=== PATIENT | female | born 1960 | race Caucasian/White ===

== ENCOUNTER 2016-03-31 12:42 | Inpatient (IN) | payer OTHER ==
[~2016-03-31] VITALS: Ht 165.1 cm; Wt 50.6 kg
[~2016-03-31 12:42] MED LIST: DEPA500T3 PO; RISP1 PO; TRAZ50TA78 PO
[2016-03-31 13:07] VITALS: BP 113/67; PULSE 60; RESP 18; TEMP 98; O2SAT 96
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
[2016-03-31 13:31] LABS: AUTOMATED NEUTROPHIL # 8.4 TH/MM3 (1.8-7.7); BASOPHIL # 0.1 TH/MM3 (0-0.2); BASOPHIL % 0.5 % (0.0-2.0); EOSINOPHIL % 0.2 % (0.0-4.0); HEMATOCRIT 41.1 % (35.0-46.0); HEMO FLAGS DIFF FINAL; LYMPH % 16.2 % (9.0-44.0); LYMPHOCYTE # 1.8 TH/MM3 (1.0-4.8); MEAN CELL VOLUME 85.1 FL (80.0-100.0); MEAN CORPUSCULAR HEMOGLOBIN 28.9 PG (27.0-34.0); MONO % 6.6 % (0.0-8.0); NEUT % 76.5 % (16.0-70.0); PLATELET COUNT 236 TH/MM3 (150-450); RED BLOOD COUNT 4.83 MIL/MM3 (4.00-5.30); RED CELL DISTRIBUTION WIDTH 13.8 % (11.6-17.2); WHITE BLOOD COUNT 11.1 TH/MM3 (4.0-11.0)
--- NOTE | 2016-03-31 13:32 | PD ---
Physical Exam Date Seen by Provider: Mar 31, 2016 Narrative I, Dr. Avila, have reviewed the advance practice practitioner's documentation and am in agreement, met with the patient face to face, made the diagnosis, and the medical decision making was done by me. *My assessment and Findings: The patient is here under Johnson Act. She is a little bit agitated. Data Data Last Documented VS Vital Signs Date Time Temp Pulse Resp B/P Pulse Ox O2 Delivery O2 Flow Rate FiO2 03/31/16 13:12 80 18 03/31/16 13:07 98.0 113/67 96 Orders Complete Blood Count With Diff (03/31/16 13:15) Comprehensive Metabolic Panel (03/31/16 13:15) Drug Screen, Random Urine (03/31/16 13:15) Alcohol (Ethanol) (03/31/16 13:15) Psych Screen (03/31/16 13:15) MDM Supervised Visit with RYAN: Yes Scripts Unable to Obtain Active Prescriptions or Reported Meds Isela Avila MD Mar 31, 2016 13:32
[2016-03-31 13:47] LABS: ALT (GPT) 19 U/L (10-53); ANION GAP 12 MEQ/L (5-15); AST (GOT) 11 U/L (15-37); BICARBONATE 22.3 MEQ/L (21.0-32.0); BLOOD UREA NITROGEN 8 MG/DL (7-18); CHLORIDE 106 MEQ/L (98-107); GLOMERULAR FILTRATION RATE 128 ML/MIN (>89); POTASSIUM 3.9 MEQ/L (3.5-5.1); SODIUM (NA) 140 MEQ/L (136-145)
[2016-03-31 13:48] LABS: AMPHETAMINE, URINE NEG (NEG); BARBITURATES, URINE NEG (NEG); COCAINE, URINE NEG (NEG)
[2016-03-31 13:49] LABS: ALKALINE PHOSPHATASE 94 U/L (45-117); TOTAL BILIRUBIN ADULT 0.3 MG/DL (0.2-1.0)
[2016-03-31 15:51] VITALS: BP 100/55; PULSE 76; RESP 18; TEMP 98.7; O2SAT 96
[2016-03-31] MEDS ORDERED: RISP1 PO (17:22)
[2016-03-31] MEDS ORDERED: LORazepam 1 MG TAB PO PRN (17:30)
[2016-03-31] MEDS ORDERED: traZODone HCL 50 MG TAB PO PRN (17:30)
[2016-03-31] MEDS ORDERED: diphenhydrAMINE HCL 50 MG/ML VIAL IM PRN (17:30)
[2016-03-31] MEDS ORDERED: ALUMINUM/MAGNESIUM/SIMETH 30 ML CUP PO PRN (17:30)
[2016-03-31] MEDS ORDERED: LORazepam 2 MG/ML VIAL IM PRN (17:30)
[2016-03-31] MEDS ORDERED: MAGNESIUM HYDROXIDE SUSP 30 ML CUP PO PRN (17:30)
[2016-03-31] MEDS ORDERED: ACETAMINOPHEN 325 MG TAB PO PRN (17:30)
[2016-03-31] MEDS ORDERED: diphenhydrAMINE HCL 50 MG CAP PO PRN (18:00)
[2016-03-31 18:14] VITALS: BP 123/75; PULSE 80; RESP 16; TEMP 98; O2SAT 95
[2016-03-31] MEDS ORDERED: risperiDONE 1 MG TAB PO SCH (21:00)
[2016-04-01 06:09] VITALS: BP 117/68; PULSE 72; RESP 18; TEMP 97.2; O2SAT 97
[2016-04-01 07:54] LABS: ANION GAP 9 MEQ/L (5-15); BICARBONATE 25.3 MEQ/L (21.0-32.0); BLOOD UREA NITROGEN 18 MG/DL (7-18); CHLORIDE 109 MEQ/L (98-107); GLOMERULAR FILTRATION RATE 90 ML/MIN (>89); POTASSIUM 3.8 MEQ/L (3.5-5.1); SODIUM (NA) 143 MEQ/L (136-145)
[2016-04-01 07:56] LABS: HDL CHOLESTEROL 70.5 MG/DL (40.0-60.0); LDL CHOLESTEROL 68 MG/DL (0-99)
[2016-04-01] MEDS: NICOTINE 21 MG/24 HR PATCH T-DERMAL SCH (08:39)
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
[2016-04-01] MEDS ORDERED: BENZTROPINE MESYLATE 1 MG TAB PO PRN (12:00)
[2016-04-01] MEDS ORDERED: hydrOXYzine HCL 50 MG TAB PO PRN (12:00)
[2016-04-01] MEDS ORDERED: diphenhydrAMINE HCL 50 MG CAP PO PRN (12:00)
[2016-04-01] MEDS ORDERED: BENZTROPINE MESYLATE 2 MG/2 ML VIAL IM PRN (12:00)
[2016-04-01] MEDS: DIVALPROEX DR 500 MG TABEC PO SCH ×2 (12:00→20:52)
[2016-04-01] MEDS ORDERED: LORazepam 2 MG/ML VIAL IM PRN ×4 (12:15)
[2016-04-01] MEDS ORDERED: LORazepam 1 MG TAB PO PRN (12:15)
[2016-04-01] MEDS ORDERED: FLUMAZENIL 1 MG/10 ML VIAL IV PUSH PRN (12:15)
[2016-04-01] MEDS ORDERED: LORazepam 2 MG TAB PO PRN (12:15)
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
[2016-04-01 18:06] LABS: HEMOGLOBIN A1a 1.3 %; HEMOGLOBIN A1b 0.8 %; HEMOGLOBIN Ao 84.9 %; HEMOGLOBIN F 1.1 %; HEMOGLOBIN P3 3.8 %
[2016-04-01 18:43] VITALS: BP 117/69; PULSE 72; RESP 18; TEMP 98; O2SAT 99
[2016-04-01] MEDS: risperiDONE 1 MG TAB PO SCH (20:52)
[2016-04-01] MEDS: REMOVE OLD NICOTINE PATCH T-DERMAL SCH (21:00)
[2016-04-02 06:00] VITALS: BP 100/68; PULSE 66; RESP 18; TEMP 98.4; O2SAT 97
[2016-04-02] MEDS: DIVALPROEX DR 500 MG TABEC PO SCH ×2 (09:00→21:05)
[2016-04-02] MEDS: NICOTINE 21 MG/24 HR PATCH T-DERMAL SCH (09:00)
[2016-04-02] MEDS: risperiDONE 1 MG TAB PO SCH ×2 (09:08→21:05)
[2016-04-02] MEDS: THIAMINE HCL 100 MG TAB PO SCH (09:08)
[2016-04-02] MEDS: FOLIC ACID 1 MG TAB PO SCH (09:08)
[2016-04-02] MEDS ORDERED: NICOTINE 21 MG/24 HR PATCH TD SCH (13:50)
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
[2016-04-02 18:00] VITALS: BP 99/64; PULSE 74; RESP 17; TEMP 98.2; O2SAT 98
[2016-04-02] MEDS: REMOVE OLD NICOTINE PATCH T-DERMAL SCH (21:00)
[2016-04-03 05:45] VITALS: BP 98/65; PULSE 64; RESP 16; TEMP 98.4; O2SAT 98
[2016-04-03] MEDS: NICOTINE 21 MG/24 HR PATCH T-DERMAL SCH (09:00)
[2016-04-03] MEDS: FOLIC ACID 1 MG TAB PO SCH (09:02)
[2016-04-03] MEDS: THIAMINE HCL 100 MG TAB PO SCH (09:02)
[2016-04-03] MEDS: DIVALPROEX DR 500 MG TABEC PO SCH ×2 (09:02→21:37)
[2016-04-03] MEDS: risperiDONE 1 MG TAB PO SCH ×2 (09:02→21:38)
--- NOTE | 2016-04-03 11:46 | HHI.PYPN ---
Subjective Remarks Patient seen and examined with counselor. Chart reviewed. Case discussed with nursing staff. On my examination today, the patient is less hyperverbal and less pressured. Her thought process is more organized, although her associations to remain a little loose. She says that she is sleeping better with the benefit of psychotropic medications. She denies side effects from medications. No SI or HI voiced. Review of Systems ROS Limitations: Poor Historian Other no reported physical complaints Objective Alert: Yes [place]: Person, Place, Date Mood: Other (calmer) Affect: Other (significantly less manic today) Memory Intact: Comment (seems fair on clinical exam) Hallucinations: Other (no AVH) Delusions: No Delusion Type: Other (no delusional material) Suicidal: Ideation (no SI) Homicidal: Ideation (no HI) Insight/Judgement Improving Remarks No abnormal motor movements noted Labs Labs reviewed. No new labs. Vitals/IOs Vital Signs Date Time Temp Pulse Resp B/P Pulse Ox O2 Delivery O2 Flow Rate FiO2 04/03/16 05:45 98.4 64 16 98/65 98 03/31/16 15:51 Room Air Assessment & Plan Problem List: (1) Bipolar disorder ICD Code: F31.9 (2) Polysubstance abuse ICD Code: F19.10 Assessment & Plan Patient seems to be having a response to psychotropic medications as they are currently dosed. I will continue psychotropics as ordered and plan to check a Depakote and ammonia level tomorrow morning. Patient has required no Ativan per withdrawal protocol and has no signs of withdrawal now. Continue other care as ordered. Patient may sign voluntary. Justification for Cont. Inpt. Risk for decompensation pending psychiatric stabilization Discharge Planning Monitor overnight. Request HC Surrog/Guard Advoc?: Yes Problem Qualifiers (1) Bipolar disorder: Qualified Code: F31.12 - Bipolar affective disorder, currently manic, moderate Gaston Toscano MD Apr 03, 2016 11:46
[2016-04-03 19:24] VITALS: BP 102/57; PULSE 72; RESP 17; TEMP 99.2; O2SAT 98
[2016-04-03] MEDS: REMOVE OLD NICOTINE PATCH T-DERMAL SCH (21:00)
[2016-04-04 06:16] VITALS: BP 114/72; PULSE 76; RESP 16; TEMP 97.7; O2SAT 97
[2016-04-04] MEDS: DIVALPROEX DR 500 MG TABEC PO SCH (08:34)
[2016-04-04] MEDS: risperiDONE 1 MG TAB PO SCH (08:34)
[2016-04-04] MEDS: FOLIC ACID 1 MG TAB PO SCH (08:34)
[2016-04-04] MEDS: THIAMINE HCL 100 MG TAB PO SCH (08:34)
[2016-04-04] MEDS: NICOTINE 21 MG/24 HR PATCH T-DERMAL SCH (08:34)
[2016-04-04] MEDS ORDERED: DIVA500T PO (11:31)
[2016-04-04] MEDS ORDERED: FOLI1TAB4 PO (11:31)
[2016-04-04] MEDS ORDERED: VITA100T2 PO (11:31)
[2016-04-04] MEDS ORDERED: RISP1 PO (11:31)
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
== END 2016-04-04 14:10 | disposition home or self-care (01) | DRG 885 ==
LOC: NEPE 12:42 → NEDA 17:18 → H270 17:50
PROVIDERS: ADMIT Psychiatry & Neurology Psychiatry; ATTEND Psychiatry & Neurology Psychiatry
DX: F31.12 Bipolar disorder, current episode manic without psychotic features, moderate (principal); F20.9 Schizophrenia, unspecified; F22 Delusional disorders; F12.10 Cannabis abuse, uncomplicated; F10.10 Alcohol abuse, uncomplicated; Z85.820 Personal history of malignant melanoma of skin; Z85.41 Personal history of malignant neoplasm of cervix uteri
CPT/HCPCS: 80048; 80053; 80061; 80164; 80307; 80320; 82140; 83036; 85025; 99285; J2060; Q0163

== ENCOUNTER 2016-05-17 08:24 | Emergency (ER) | payer MEDICAID, OTHER ==
[~2016-05-17] VITALS: Ht 162.6 cm; Wt 50.0 kg
[~2016-05-17 08:24] MED LIST changes: -DEPA500T3 PO; +DIVA500T PO; +FOLI1TAB4 PO; -TRAZ50TA78 PO; +VITA100T2 PO
[2016-05-17 08:30] VITALS: BP 132/78; PULSE 74; RESP 15; TEMP 98.2; O2SAT 98
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
[2016-05-17] MEDS ORDERED: IBUPROFEN 600 MG TAB PO ONE (09:00)
--- NOTE | 2016-05-17 09:33 | RADRPT ---
EXAM DATE/TIME: 05/17/2016 09:05 [facility] COMPARISON: No previous studies available for comparison. INDICATIONS : Pain. MEDICAL HISTORY : None. SURGICAL HISTORY : None. ENCOUNTER: Initial ACUITY: 1 month PAIN SCORE: 4/10 LOCATION: Right wrist. FINDINGS: AP, lateral and oblique views of the right wrist were obtained and demonstrate normal mineralization and alignment. Minimal degenerative changes noted with slight sclerosis. There is no destructive thomas ge or erosions. The ulnar styloid is intact. Soft tissues appear unremarkable. CONCLUSION: Minimal osteoarthritic change. Milton Carrasco MD on May 17, 2016 at 9:31 Board Certified Radiologist. This report was verified electronically.
[2016-05-17] MEDS ORDERED: IBUP-232 PO (09:37)
== END 2016-05-17 10:07 | disposition home or self-care (01) ==
LOC: NEPB 08:24
DX: S63.591A Other specified sprain of right wrist, initial encounter (principal); F10.10 Alcohol abuse, uncomplicated; Y04.8XXA Assault by other bodily force, initial encounter; F31.9 Bipolar disorder, unspecified; Y93.9 Activity, unspecified; Y92.9 Unspecified place or not applicable; Y99.9 Unspecified external cause status
CPT/HCPCS: 73110; 99283; L3908

== ENCOUNTER 2016-09-12 10:02 | Emergency (ER) | payer MEDICAID ==
[~2016-09-12] VITALS: Ht 160 cm; Wt 50.0 kg
[~2016-09-12 10:02] MED LIST changes: +IBUP-232 PO
[2016-09-12 10:06] VITALS: BP 134/85; PULSE 90; RESP 18; TEMP 98; O2SAT 96
--- NOTE | 2016-09-12 10:12 | PD ---
Physical Exam Time Seen by Provider: 10:08 Narrative 55yo F requesting "a shot of penicillin;a prescription for antibiotics, vitamins and minerals, and cough medicine for her cold that started since it started raining." Also requesting "prescription for vit A for the sun, vit C for cold, and vit D to avoid osteopetrosis." Is also requesting "peroxide." Reports cough, nasal congestion. Denies fever. Vomiting. Denies SOB, chest pain. Patient seen in triage. VS reviewed. Awaiting bed placement. Data Data Last Documented VS Vital Signs Date Time Temp Pulse Resp B/P Pulse Ox O2 Delivery O2 Flow Rate FiO2 09/12/16 10:06 98.0 90 18 134/85 96 Room Air MDM Supervised Visit with RYAN: Domonique Garcia Sep 12, 2016 10:12
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
== END 2016-09-12 11:17 | disposition home or self-care (01) ==
LOC: NEPD 10:02
DX: J06.9 Acute upper respiratory infection, unspecified (principal); Z72.0 Tobacco use
CPT/HCPCS: 99282

== ENCOUNTER 2017-04-16 16:18 | Emergency (ER) | payer MEDICAID ==
[~2017-04-16] VITALS: Ht 165.1 cm; Wt 52.3 kg
[~2017-04-16 16:18] MED LIST changes: -FOLI1TAB4 PO; -VITA100T2 PO
[2017-04-16 16:20] VITALS: BP 142/95; PULSE 96; RESP 18; TEMP 98.4; O2SAT 98
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
[2017-04-16] MEDS ORDERED: PRED-503 PO (17:52)
[2017-04-16] MEDS ORDERED: predniSONE 20 MG TAB PO ONE (18:00)
[2017-04-16] MEDS ORDERED: diphenhydrAMINE HCL 50 MG CAP PO ONE (18:00)
== END 2017-04-16 18:15 | disposition home or self-care (01) ==
LOC: NEPK 16:18
DX: R21 Rash and other nonspecific skin eruption (principal); F31.9 Bipolar disorder, unspecified; Z79.899 Other long term (current) drug therapy
CPT/HCPCS: 99283; J7512; Q0163

== ENCOUNTER 2017-05-18 04:24 | Emergency (ER) | payer MEDICAID, OTHER ==
[~2017-05-18] VITALS: Ht 165.1 cm; Wt 52.0 kg
[~2017-05-18 04:24] MED LIST changes: +PRED-503 PO
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
[2017-05-18 04:56] VITALS: BP 140/68; PULSE 82; RESP 20; TEMP 98; O2SAT 98
[2017-05-18 10:19] VITALS: BP 109/65; PULSE 80; RESP 19; O2SAT 97
== END 2017-05-18 10:52 | disposition home or self-care (01) ==
LOC: NEPD 04:24
DX: F10.129 Alcohol abuse with intoxication, unspecified (principal); F20.9 Schizophrenia, unspecified; F31.9 Bipolar disorder, unspecified; Z72.0 Tobacco use
CPT/HCPCS: 99283

== ENCOUNTER 2017-07-08 19:21 | Emergency (ER) | payer MEDICAID, OTHER ==
[~2017-07-08] VITALS: Ht 172.7 cm; Wt 75.0 kg
[~2017-07-08 19:21] MED LIST changes: -IBUP-232 PO; -PRED-503 PO
[2017-07-08 19:31] VITALS: BP 127/87; PULSE 89; TEMP 98.6; O2SAT 96
[2017-07-08] MEDS ORDERED: OLANZapine IM 10 MG VIAL IM ONE (20:30)
[2017-07-08 20:40] LABS: BASOPHIL # 0.1 TH/MM3 (0-0.2); BASOPHIL % 0.7 % (0.0-2.0); EOSINOPHIL % 0.2 % (0.0-4.0); HEMATOCRIT 44.9 % (35.0-46.0); HEMOGLOBIN 15.5 GM/DL (11.6-15.3); LYMPH % 23.2 % (9.0-44.0); MEAN CELL VOLUME 86.7 FL (80.0-100.0); MEAN CORPUSCULAR HEMOGLOBIN 29.9 PG (27.0-34.0); MEAN CORPUSCULAR HGB CONC 34.5 % (32.0-36.0); MEAN PLATELET VOLUME 9.6 FL (7.0-11.0); MONO % 5.5 % (0.0-8.0); MONOCYTE # 0.5 TH/MM3 (0-0.9); NEUT % 70.4 % (16.0-70.0); PLATELET COUNT 241 TH/MM3 (150-450); RED BLOOD COUNT 5.18 MIL/MM3 (4.00-5.30); WHITE BLOOD COUNT 8.5 TH/MM3 (4.0-11.0)
[2017-07-08 20:55] LABS: ALBUMIN 4.4 GM/DL (3.4-5.0); ALT (GPT) 22 U/L (10-53); AST (GOT) 15 U/L (15-37); BICARBONATE 21.8 MEQ/L (21.0-32.0); BLOOD UREA NITROGEN 8 MG/DL (7-18); CALCIUM 9.1 MG/DL (8.5-10.1); CHLORIDE 111 MEQ/L (98-107); CREATININE 0.58 MG/DL (0.50-1.00); GLOMERULAR FILTRATION RATE 108 ML/MIN (>89); GLUCOSE,RANDOM 88 MG/DL (74-106); SODIUM (NA) 146 MEQ/L (136-145)
[2017-07-08 21:05] LABS: ALKALINE PHOSPHATASE 77 U/L (45-117); TOTAL BILIRUBIN ADULT 0.2 MG/DL (0.2-1.0); TOTAL PROTEIN 7.8 GM/DL (6.4-8.2)
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
[2017-07-08 21:14] LABS: ACETAMINOPHEN LESS THAN 2.0 MCG/ML (10.0-30.0)
[2017-07-08] MEDS ORDERED: LORazepam 2 MG/ML VIAL IV PUSH PRN ×4 (21:15)
[2017-07-08] MEDS ORDERED: ONDANSETRON ODT 4 MG TAB PO PRN (21:15)
[2017-07-08] MEDS ORDERED: ACETAMINOPHEN 325 MG TAB PO PRN (21:15)
[2017-07-08] MEDS ORDERED: LORazepam 1 MG TAB PO PRN (21:15)
[2017-07-08] MEDS ORDERED: LORazepam 2 MG TAB PO PRN (21:15)
[2017-07-08] MEDS ORDERED: FLUMAZENIL 0.5 MG/5 ML VIAL IV PUSH PRN (21:15)
[2017-07-09 02:51] LABS: BILIRUBIN, URINE NEG (NEG); BLOOD, URINE NEG (NEG); GLUCOSE,URINE NEG (NEG); KETONE, URINE NEG (NEG); MUCUS URINE FEW /lpf (OCC); NITRITE,URINE NEG (NEG); SQUAMOUS EPITHELIAL CELL URINE 1 /hpf (0-5); URINE COLOR LIGHT-YELLOW (YELLW/STRAW); URINE LEUKOCYTE ESTERASE NEG (NEG)
[2017-07-09 05:20] VITALS: BP 107/62; PULSE 69; RESP 16; TEMP 99; O2SAT 97
--- NOTE | 2017-07-09 10:51 | PD ---
Physical Exam Time Seen by Provider: 10:[address] Avila has evaluated the patient, lifted Johnson act and cleared the patient for discharge. Data Data Last Documented VS Vital Signs Date Time Temp Pulse Resp B/P (MAP) Pulse Ox O2 Delivery O2 Flow Rate FiO2 07/09/17 05:20 99.0 69 16 107/62 (77) 97 Room Air Orders Orders Complete Blood Count With Diff (07/08/17 19:30) Comprehensive Metabolic Panel (07/08/17:30) Thyroid Stimulating Hormone (07/08/17:30) Urinalysis - C+S If Indicated (07/08/17 19:30) Psych Screen (07/08/17:30) Drug Screen, Random Urine (07/08/17:30) Alcohol (Ethanol) (07/08/17 19:30) Salicylates (Aspirin) (07/08/17 19:30) Tylenol (Acetaminophen) (07/08/17 19:30) Olanzapine Inj (Zyprexa Inj) (07/08/17 20:30) Restraints Violent (07/08/17 20:17) Alcohol Withdrawal Asmt-Ciwa ONCE (07/08/17 21:07) Ondansetron Odt (Zofran Odt) (07/08/17 21:15) Acetaminophen (Tylenol) (07/08/17 21:15) Flumazenil Inj (Romazicon Inj) (07/08/17 21:15) Lorazepam (Ativan) (07/08/17 21:15) Lorazepam Inj (Ativan Inj) (07/08/17 21:15) Lorazepam (Ativan) (07/08/17 21:15) Lorazepam Inj (Ativan Inj) (07/08/17 21:15) Lorazepam Inj (Ativan Inj) (07/08/17 21:15) Lorazepam Inj (Ativan Inj) (07/08/17 21:15) Diet Regular Basic (07/09/17 Breakfast) Labs Laboratory Tests Test 07/08/17 19:35 07/09/17 02:10 White Blood Count 8.5 TH/MM3 Red Blood Count 5.18 MIL/MM3 Hemoglobin 15.5 GM/DL Hematocrit 44.9 % Mean Corpuscular Volume 86.7 FL Mean Corpuscular Hemoglobin 29.9 PG Mean Corpuscular Hemoglobin Concent 34.5 % Red Cell Distribution Width 14.0 % Platelet Count 241 TH/MM3 Mean Platelet Volume 9.6 FL Neutrophils (%) (Auto) 70.4 % Lymphocytes (%) (Auto) 23.2 % Monocytes (%) (Auto) 5.5 % Eosinophils (%) (Auto) 0.2 % Basophils (%) (Auto) 0.7 % Neutrophils # (Auto) 6.0 TH/MM3 Lymphocytes # (Auto) 2.0 TH/MM3 Monocytes # (Auto) 0.5 TH/MM3 Eosinophils # (Auto) 0.0 TH/MM3 Basophils # (Auto) 0.1 TH/MM3 CBC Comment DIFF FINAL Differential Comment Blood Urea Nitrogen 8 MG/DL Creatinine 0.58 MG/DL Random Glucose 88 MG/DL Total Protein 7.8 GM/DL Albumin 4.4 GM/DL Calcium Level 9.1 MG/DL Alkaline Phosphatase 77 U/L Aspartate Amino Transf (AST/SGOT) 15 U/L Alanine Aminotransferase (ALT/SGPT) 22 U/L Total Bilirubin 0.2 MG/DL Sodium Level 146 MEQ/L Potassium Level 3.8 MEQ/L Chloride Level 111 MEQ/L Carbon Dioxide Level 21.8 MEQ/L Anion Gap 13 MEQ/L Estimat Glomerular Filtration Rate 108 ML/MIN Thyroid Stimulating Hormone 3rd Gen 0.519 uIU/ML Salicylates Level 2.6 MG/DL Acetaminophen Level LESS THAN 2.0 MCG/ML Ethyl Alcohol Level 234 MG/DL Urine Color LIGHT-YELLOW Urine Turbidity CLEAR Urine pH 5.0 Urine Specific [place] 1.006 Urine Protein NEG mg/dL Urine Glucose (UA) NEG mg/dL Urine Ketones NEG mg/dL Urine Occult Blood NEG Urine Nitrite NEG Urine Bilirubin NEG Urine Urobilinogen LESS THAN 2.0 MG/DL Urine Leukocyte Esterase NEG Urine RBC 1 /hpf Urine WBC 1 /hpf Urine Squamous Epithelial Cells 1 /hpf Urine Mucus FEW /lpf Microscopic Urinalysis Comment CULT NOT INDICATED Urine Opiates Screen NEG Urine Barbiturates Screen NEG Urine Amphetamines Screen NEG Urine Benzodiazepines Screen NEG Urine Cocaine Screen NEG Urine Cannabinoids Screen POS [facility] Supervised Visit with RYAN: No Narrative Course Dr. Avila has evaluated the patient, lifted Johnson act and cleared the patient for discharge. Patient contracts safety. Denies suicidal or homicidal ideations. Patient will be provided community resource packet to /ACT for follow-up. Has friends and family for support. Patient was medically cleared by alternate provider prior to psych screening. Patient has been evaluated by psychiatry and and is now cleared for discharge. Diagnosis Primary Impression: Bipolar 1 disorder, manic, mild Additional Impression: Alcohol abuse Referrals: DAISY (Out patient) [facility] Primary Care Physician Psychiatrist Jeffy VILLA Behavioral Patient Instructions: Abuse of Alcohol (ED), Alcohol Dependence (ED), Alcohol Intoxication (ED), Bipolar Disorder (ED), General Instructions Additional Instruction: Contract safety to your self and others Follow-up with psychiatry Follow-up with primary care provider Follow-up with Raul Best Return to the emergency department immediately with worsening of symptoms Med/Other Pt SpecificInfo: No Change to Meds, No Meds Exist/No RX given Disposition: 01 DISCHARGE HOME Condition: Stable Domonique Haynes Jul 09, 2017 10:51
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
== END 2017-07-09 11:18 | disposition home or self-care (01) ==
LOC: NEPJ 19:21
DX: F31.9 Bipolar disorder, unspecified (principal); F10.10 Alcohol abuse, uncomplicated; F12.10 Cannabis abuse, uncomplicated; Z72.0 Tobacco use; Z79.899 Other long term (current) drug therapy
CPT/HCPCS: 80053; 80307; 81001; 84443; 85025; 96372

== ENCOUNTER 2018-02-10 19:04 | Inpatient (IN) ==
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
[2018-02-10 19:46] LABS: Baso # (Auto) 0.1 th/mm3 (0.0-0.2); Baso % (Auto) 0.5 % (0.0-2.0); Eos # (Auto) 0.1 th/mm3 (0.0-0.4); Eos % (Auto) 0.8 % (0.0-4.0); Hematocrit 42.4 % (35.0-46.0); Lymph # (Auto) 2.1 th/mm3 (1.0-4.8); Lymph % (Auto) 21.3 % (9.0-44.0); Mean Corpuscular HGB Conc 35.3 % (32.0-36.0); Mean Corpuscular Hemoglobin 31.7 pg (27.0-34.0); Mean Corpuscular Volume 89.8 fL (80.0-100.0); Mean Platelet Volume 9.2 fL (7.0-11.0); Mono # (Auto) 0.6 th/mm3 (0.0-0.9); Mono % (Auto) 5.8 % (0.0-8.0); Neut # (Auto) 7.2 th/mm3 (1.8-7.7); Neut % (Auto) 71.6 % (16.0-70.0); Platelet Count 200 th/mm3 (150-450); Red Blood Count 4.73 mil/mm3 (4.00-5.30); Red Cell Distribution Width 14.1 % (11.6-17.2); White Blood Count 10.1 th/mm3 (4.0-11.0)
[2018-02-10 20:00] LABS: Albumin 4.4 g/dL (3.4-5.0); Anion Gap 9 meq/L (5-15); Aspartate Aminotransferase 25 U/L (15-37); Blood Urea Nitrogen 12 mg/dL (7-18); Calcium 9.1 mg/dL (8.5-10.1); Carbon Dioxide 24.8 meq/L (21.0-32.0); Chloride 108 meq/L (98-107); Glomerular Filtration Rate Greater Than 89 mL/min (>89); Glucose,Random 89 mg/dL (74-106); Magnesium 2.4 mg/dL (1.5-2.5); Potassium 3.7 meq/L (3.5-5.1); Sodium 142 meq/L (136-145)
[2018-02-10 20:01] LABS: Alanine Aminotransferase 33 U/L (10-53); Alcohol 104 mg/dL (0-5)
[2018-02-10 20:09] LABS: Alkaline Phosphatase 74 U/L (45-117); Total Protein 7.4 g/dL (6.4-8.2)
[2018-02-10 21:14] LABS: Bilirubin,Urine Negative (Negative); Clarity,Urine Clear (Clear); Color,Urine Colorless (Yellw/Straw); Glucose,Urine (UA) Negative (Negative); Leukocyte Esterase,Urine Negative (Negative); Nitrite,Urine Negative (Negative); Specific Gravity,Urine 1.002 (1.002-1.035)
[2018-02-10 21:19] LABS: Amphetamine Screen,Urine Neg (Neg); Barbiturate Screen,Urine Neg (Neg); Cannabinoid Screen,Urine Neg (Neg); Cocaine Screen,Urine Neg (Neg)
[2018-02-10 21:22] LABS: Opiate Screen,Urine Neg (Neg)
[2018-02-11] MEDS ORDERED: Aluminum/Magnesium/Simethacone Susp 30 ML UDC PO PRN (08:27)
[2018-02-11] MEDS ORDERED: Haloperidol Inj 5 MG/ML Ampul IV.PUSH PRN (08:27)
[2018-02-11] MEDS ORDERED: Bisacodyl 10 MG Supp RECTAL PRN (08:27)
[2018-02-11] MEDS ORDERED: LORazepam 1 MG Tablet PO PRN (08:27)
[2018-02-11] MEDS ORDERED: Senna/Docusate Sodium 8.6/50 MG Tablet PO SCH (09:00)
--- NOTE | 2018-02-11 12:56 | P.HPPSY ---
Provisional Diagnosis Admission Date: February 11, 2018 09:05 [place].: 1. Bipolar disorder, possibly hypomanic or manic mild Rule out component of drug-induced mood disorder 2. Alcohol abuse [place] II.: Deferred Competence Certification of Person's Competence To Provide Express and Informed Consent I have personally examined Sara Evans, a person being served at [facility] on, February 11, 2018 1256. Express and informed consent means consent voluntarily given in writing, by a competent person, after sufficient explanation and disclosure of the subject matter involved to enable the person to make a knowing and willful decision without any element of force, fraud, deceit, duress, or other form of constraint or coercion. This person is 18 years of age or older, is not now known to be incompetent to consent to treatment with a guardian advocate, and does not have a health care surrogate or proxy currently making medical treatment decisions. I have found this person to be one of the following: [X] Competent to provide express and informed consent, as defined above, for voluntary admission to this facility and is competent to provide express and informed consent for treatment. He/she has the consistent capacity to make well reasoned, willful, and knowing decisions concerning his or her medical or mental health treatment. The person fully and consistently understands the purpose of the admission for examination/placement and is fully capable of personally exercising all rights assured under [place] [] Incompetent to provide express and informed consent to voluntary admission, and this is incompetent to provide express and informed consent to treatment. The person must be transferred to involuntary status and a petition for a guardian advocate filed with the Circuit Court. [] Refusing to provide express and informed consent to voluntary admission but is competent to provide express and informed consent for treatment. The person must be discharged or transferred to involuntary status. Form shall be completed within 24 hours of a person's arrival at the receiving facility and filed in the clinical record of each person: 1. Admitted on a voluntary basis 2. Permitted to provide express and informed consent to his/her own treatment 3. Allowed to transfer from involuntary to voluntary status 4. Prior to permitting a person to consent to his or her own treatment after having been previously found incompetent to consent to treatment. History of Present Illness Capacity: Has capacity Chief Complaint: Johnson act History of Present Illness: Ms. Evans is a 57-year-old female with a history of alcohol use disorder and bipolar disorder who presents under a Johnson act by [place] [employer] alleging that the patient contacted 911. When officers responded, the patient allegedly made comments regarding aliens and foreign countries attacking her. [place] act alleges that the patient refuses to take medications and further lives alone and cannot care for herself. Reviewing the electronic medical record, I note the patient was seen by the psychiatric nurse practitioner in September of this year in consultation and was most recently psychiatrically admitted here in March 2016 under my care, at which time she was stabilized on Depakote and Risperdal. Patient seen and examined with nurse. Chart reviewed. Case discussed with nursing staff. On my examination today, the patient is calm and cooperative. She is somewhat distractible and her speech somewhat rapid. She says that she has been staying at a house that her brother owns and "someone came into the yard and was talking about crack." She is unable to describe this individual in any detail except that he was wearing a T-shirt and shorts. Unclear whether this interaction was reality based. Thought process circumstantial. Her speech is rambling. She describes her mood as "fine" and reports that she has been sleeping well. She denies any audiovisual hallucinations. She denies any suicidal or homicidal ideation, intent or plan. No chandler delusional material. Remainder of the psychiatric ROS is negative. No acute physical complaints. Past psychiatric history: Patient has a history of bipolar disorder and alcohol use disorder. She follows at [facility] with a nurse practitioner there. She reports that she takes Risperdal and a "orange pill." She does note that medications have recently been tapered because they were "too strong" following recent weight loss. Most recent psychiatric admission was here at [place]. Patient denies a history of suicide attempts. Family history: The patient denies a family history of serious mental illness or suicide. Chemical dependency history: The patient describes herself as a sporadic drinker. She says that she had 2 beers prior to admission. She denies any history of blackouts, DTs or seizures. I do note that alcohol level has been consistently elevated when checked during previous assays. She denies any other substance use. Social history: The patient notes that her father was an performance test architect to [employer] at [place]. She says that she lives with a roommate. She is single with no children. She does have a pet cat. She reports that she is college educated and attended classes at [employer]. She denies any history. Denies any legal history. Denies any access to guns or firearms. She does endorse some yarsani beliefs. Denies any history of abuse. Patient declines to allow us to reach out to anyone for collateral information. Patient unsure of home medication regimen. I have called over to [facility] and have obtained medication list: Risperdal 1 mg at bedtime and Trileptal 150 mg twice daily, last filled on 12/22. - Inpatient Certification I certify that the inpatient services were ordered in accordance with Medicare regulations governing the order. This includes certification that hospital inpatient services are reasonable and necessary and in the case of services not specified as inpatient-only under 42 CFR 419.22(n), that they are appropriately provided as inpatient services in accordance to with the 2-midnight benchmark under 43 CFR 412.3(e) I certify that inpatient psychiatric hospital services are medically necessary. Evaluation and treatment and/or diagnostic testing are expected to improve the patient's condition. The patient needs on a daily basis, active treatment furnished directly by or requiring the supervision of inpatient psychiatric facility personnel. Estimated Total Length of Stay (Days): 5 (3-5) Plans for Post Hospital Care: Not yet determined Review of Systems All other systems reviewed negative except as stated in HPI PMFSH - History History Provided By: Patient, Medical Record, Law Enforcement - Medical History Medical History: Medical History (Last Reviewed 02/10/18 @ 19:30 by KASANDRA Mack) Hx of hysterectomy Insomnia - Surgical History Surgical History: Surgical History (Last Reviewed 02/10/18 @ 19:30 by KASANDRA Mack) Hx of appendectomy Hx of melanoma excision - Tobacco History Second Hand Smoke Exposure: Yes Tobacco Use In Past 30 Days: Yes Smoking Status: Current every day smoker Tobacco Type: Cigarettes - Alcohol History How Often Do You Have a Drink Containing Alcohol: 2 to 3 times a week - Substance Use History Substance History: No History of Abuse - Substance Use Type Alcohol Status: Active - Travel History Recent Travel in the [place] Within the Last 8 Weeks: No Recent Travel Out of the Country Within the Last 8 Weeks: No - Immunization History Tetanus Immunization: Unsure Quality Measures - Psychiatric History Psychological trauma history: See above - Patient Strengths Patient's strengths (minimum of 2): In a monitored setting. Verbally fluent. Medications and Allergies Active Medications: Active Medications Al Hydrox/Mg Hydrox/Simethicone (Mag-Al Plus Susp Liq) 30 ml PO Q6H PRN PRN Reason: DYSPEPSIA Al Hydroxide/Mg Hydroxide (Milk Of Magnesia Liq) 30 ml PO Q12H PRN PRN Reason: Mild Constipation Bisacodyl (Dulcolax Supp) 10 mg RECTAL DAILY PRN PRN Reason: SEVERE CONSITIPATION Flumazenil (Romazecon Inj) 0.2 mg IV.PUSH Q1M PRN PRN Reason: OVERSEDATION Haloperidol Lactate (Haldol Inj) 1 mg IV.PUSH Q15M PRN PRN Reason: for severe agitation Lactulose (Lactulose Liq) 30 ml PO DAILY PRN PRN Reason: SEVERE CONSITIPATION Lorazepam (Ativan) 2 mg PO Q2H PRN PRN Reason: for CIWA 11-14 Lorazepam (Ativan Inj) 2 mg IV.PUSH Q2H PRN PRN Reason: for CIWA 11-14 Lorazepam (Ativan Inj) 2 mg IV.PUSH Q1H PRN PRN Reason: for CIWA 15-20 Lorazepam (Ativan Inj) 2 mg IV.PUSH Q15M PRN PRN Reason: for CIWA > 20 Lorazepam (Ativan Inj) 1 mg IV.PUSH Q4H PRN PRN Reason: for CIWA 8-10 Lorazepam (Ativan) 1 mg PO Q4H PRN PRN Reason: for CIWA 8-10 Senna/Docusate Sodium (Estephania-Colace) 1 tab PO BID KENYA Last Admin: 02/11/18 10:39 Dose: Not Given Sennosides (Senokot) 17.2 mg PO Q12H PRN PRN Reason: Moderate Constipation Allergies Allergy/AdvReac Type Severity Reaction Status Date / Time No Known Allergies Allergy Uncoded 09/12/16 10:39 Home Medications Medication Instructions Recorded Confirmed Type No Known Home Medications 02/11/18 02/11/18 History Results - Labs CBC & Chem 7: 02/10/18 19:15 02/10/18 19:15 Labs: Laboratory Results - last 24 hr 02/10/18 02/10/18 02/10/18 19:15 19:15 19:15 WBC 10.1 RBC 4.73 Hgb 15.0 Hct 42.4 MCV 89.8 MCH 31.7 MCHC 35.3 RDW 14.1 Plt Count 200 MPV 9.2 Neut % (Auto) 71.6 H Lymph % (Auto) 21.3 Graves % (Auto) 5.8 Eos % (Auto) 0.8 Baso % (Auto) 0.5 Neut # (Auto) 7.2 Lymph # (Auto) 2.1 Graves # (Auto) 0.6 Eos # (Auto) 0.1 Baso # (Auto) 0.1 WBC Differential . Differential Comment Auto diff final Sodium 142 Potassium 3.7 Chloride 108 H Carbon Dioxide 24.8 Anion Gap 9 BUN 12 Creatinine 0.54 Estimated GFR Greater than 89 Random Glucose 89 Calcium 9.1 Magnesium 2.4 Total Bilirubin 0.2 AST 25 ALT 33 Alkaline Phosphatase 74 Total Protein 7.4 Albumin 4.4 TSH 1.420 Urine Color Urine Clarity Urine pH Ur Specific Ford Urine Protein Urine Glucose (UA) Urine Ketones Urine Occult Blood Urine Nitrate Urine Bilirubin Urine Urobilinogen Ur Leukocyte Esterase Urine WBC Micro UA Comment Ur Microscopic Review Urine Culture Comments Salicylates 2.5 L Urine Opiates Screen Acetaminophen Less than 2.0 L Ur Barbiturates Screen Ur Amphetamines Screen U Benzodiazepines Scrn Urine Cocaine Screen U Cannabinoids Screen Serum Alcohol 104 H 02/10/18 02/10/18 19:50 19:50 WBC RBC Hgb Hct MCV MCH MCHC RDW Plt Count MPV Neut % (Auto) Lymph % (Auto) Graves % (Auto) Eos % (Auto) Baso % (Auto) Neut # (Auto) Lymph # (Auto) Graves # (Auto) Eos # (Auto) Baso # (Auto) WBC Differential Differential Comment Sodium Potassium Chloride Carbon Dioxide Anion Gap BUN Creatinine Estimated GFR Random Glucose Calcium Magnesium Total Bilirubin AST ALT Alkaline Phosphatase Total Protein Albumin TSH Urine Color Colorless Urine Clarity Clear Urine pH 6.0 Ur Specific Ford 1.002 Urine Protein Negative Urine Glucose (UA) Negative Urine Ketones Negative Urine Occult Blood Negative Urine Nitrate Negative Urine Bilirubin Negative Urine Urobilinogen Less than 2 Ur Leukocyte Esterase Negative Urine WBC Less than 1 Micro UA Comment Culture not ind Ur Microscopic Review Not Reportable Urine Culture Comments Culture not ind Salicylates Urine Opiates Screen Neg Acetaminophen Ur Barbiturates Screen Neg Ur Amphetamines Screen Neg U Benzodiazepines Scrn Neg Urine Cocaine Screen Neg U Cannabinoids Screen Neg Serum Alcohol Labs reviewed. CBC unremarkable. CMP unremarkable. TSH within normal limits. Urinalysis bland. Urine toxicology negative. Alcohol level elevated at 104. Exam Vital signs: Vital Signs 02/10/18 19:37 02/10/18 21:40 02/11/18 09:33 Temperature 98.6 F 98.5 F Pulse Rate 88 81 56 L Respiratory Rate 18 Blood Pressure 105/71 108/58 L 142/76 H Pulse Oximetry 95 96 98 Intake & Output 02/10/18 02/11/18 02/11/18 18:59 06:59 18:59 Weight 44.906 kg Narrative: Physical examination was completed by ED provider. On my exam, patient appears to be in no acute physical distress. No motoric abnormalities noted. No signs of intoxication or withdrawal noted. Labs and vital signs reviewed. Mental Status Examination Appearance: Appropriate Consciousness: Alert Orientation: Person, Place (At least) Motor Activity: Normal gait Speech: Rapid Language: Other (Somewhat rambling) Fund of Knowledge: Adequate Attention and Concentration: Easily distracted Memory: Unremarkable Mood: Other ("Fine") Affect: Appropriate Thought Process & Associations: Circumstantial Thought Content: Appropriate Hallucination Type: None Delusion Type: None Suicidal Ideation: No Suicidal Plan: No Suicidal Intention: No Homicidal Ideation: No Homicidal Plan: No Homicidal Intention: No Mental Status Exam Remarks: Insight and judgment are unclear. Assessment and Plan - Assessment (1) Bipolar disorder, unspecified Code(s): F31.9 - Bipolar disorder, unspecified Status: Acute (2) Alcohol abuse Code(s): F10.10 - Alcohol abuse, uncomplicated Status: Acute - Plan Plan: 57-year-old female with psychiatric history as detailed above who presents under Johnson act by law enforcement. On my examination today, the patient displays some symptoms of hypomania or perhaps mild vee. It appears there was concern for medication nonadherence and possible psychotic symptoms as alleged in the Johnson act. I see no clear evidence of psychosis (unless her report of a man coming into her yard is delusional in nature) at the time of my evaluation. Patient is agreeable to remaining on the inpatient psychiatric unit for observation for any impairments in reality construction or self-care. Admit inpatient. Voluntary status. Transfer to 2600 unit. Continue Risperdal 1 mg at bedtime and Trileptal 150 mg twice daily. I did offer patient medication adjustment, but she would like to continue prior to admission medications for now. Check EKG for QTc. Atarax as needed for anxiety. Melatonin as needed for sleep. CIWA scale with Ativan for the management of any withdrawal. E-FORCSE report reviewed. Thiamine and folate. Seizure precautions. OT eval for ADLs assessment. BMI is low, and I will request dietitian consultation and assess for vitamin deficiencies. Vitals every 4 hours with CIWA scale. Counselor to see. Collateral information if patient will consent. Disposition planning. Estimated length of stay: 3-5 days. Justification for Continued Inpatient Stay: Monitoring for impairment in reality construction. Monitoring for impairment in self-care. Discharge Planning: Pending outcome of observation Request Healthcare Surrogate/Guardian Advocate?: No
[2018-02-11] MEDS ORDERED: Acetaminophen 325 MG Tablet PO PRN (13:24)
[2018-02-11] MEDS ORDERED: Melatonin 5 MG Tablet PO PRN (13:24)
[2018-02-11 18:26] LABS: Folate 18.5 ng/mL (3.1-17.5)
[2018-02-11] MEDS: OXcarbazepine 150 MG Tablet PO SCH (20:59)
[2018-02-11] MEDS ORDERED: risperiDONE 1 MG ODT PO SCH ×2 (21:00)
[2018-02-12 08:13] LABS: Chol/HDL Ratio 2.38 Ratio; HDL Cholesterol 78.7 mg/dL (40.0-60.0)
[2018-02-12] MEDS: OXcarbazepine 150 MG Tablet PO SCH ×2 (08:55→20:45)
[2018-02-12] MEDS: Folic Acid 1 MG Tablet PO SCH ×2 (08:55→12:53)
--- NOTE | 2018-02-12 10:07 | P.PNPSY ---
Subjective Chief Complaint: Johnson act Remarks: Patient seen and examined with nurse. Chart reviewed. Nursing note from overnight noted patient to be: "PARANOID, PATIENT RAMBLING ON ABOUT CHOCOLATE CAKE AND THAT ALIENS WERE ATTACKING HER AND SHE HAD TO DEFEND HERSELF AND THAT IS WHY SHE WAS BROUGHT IN." Case discussed with nursing staff who reports patient has not verbalized any delusional material this shift. On my exam, patient remains calm and pleasant. She disavows nursing report from overnight and says nurse must have misunderstood. No SI/HI. No AVH. Patient denies side effects from medications. She is agreeable to titrating Risperdal but would like to keep dose all at HS. no physical complaints. Vital Signs Temp Pulse Resp BP Pulse Ox 02/12/18 06:03 98.1 F 69 18 130/65 97 Intake and Output 02/11/18 02/12/18 02/12/18 22:59 06:59 14:59 Other: Weight 47.174 kg Weight On Admission 47.174 kg Laboratory Results - last 24 hr 02/11/18 02/12/18 17:00 07:32 Triglycerides 85 Cholesterol 188 LDL Cholesterol, Calc 92 HDL Cholesterol 78.7 H Cholesterol/HDL Ratio 2.38 Vitamin B12 509 Folate 18.5 H Labs reviewed. B12 and folate levels not low. Review of Systems All other systems reviewed negative except as stated in HPI Mental Status Examination Appearance: Appropriate Consciousness: Alert Orientation: Person, Place (At least) Motor Activity: Normal gait, Other (No motor abnormalities noted) Speech: Unremarkable Language: Adequate Fund of Knowledge: Adequate Attention and Concentration: Other (Fair) Memory: Unremarkable Mood: Appropriate Affect: Appropriate Thought Process & Associations: Other (Fairly linear) Thought Content: Appropriate Hallucination Type: None Delusion Type: None (No delusional material presently, but see report from overnight.) Suicidal Ideation: No Suicidal Plan: No Suicidal Intention: No Homicidal Ideation: No Homicidal Plan: No Homicidal Intention: No Mental Status Exam Remarks: Insight and judgment are perhaps fair Assessment and Plan - Assessment (1) Bipolar disorder, unspecified Code(s): F31.9 - Bipolar disorder, unspecified Status: Acute (2) Alcohol abuse Code(s): F10.10 - Alcohol abuse, uncomplicated Status: Acute - Plan Plan: Titrate Risperdal to 2mg qHS to target residual psychiatric symptoms. Continue Trileptal as ordered. Dietitian input noted and appreciated; I will add Theragran as recommended. OT input noted and appreciated. Continue to monitor on the inpatient unit. Continue other medications and care as ordered. Justification for Continued Inpatient Stay: Medication changes. Discharge Planning: Possible discharge tomorrow, Friday. Request Healthcare Surrogate/Guardian Advocate?: No
--- NOTE | 2018-02-12 12:39 | P.DIET ---
Nutritional Evaluation Type of nutrition evaluation: initial Nutrition consult regarding: Diet Evaluation Nutrition screening: [facility] [place] Screening comments: 02/11/18 [facility] [place] Low BMI Subjective Subjective Comments: Pt visited in her room before lunch today. Pt states her HT as 64.5 inches( 163.8cm)-used for assessment here. Pt provides a recent diet history significant for recent daily walks 5-miles or greater in hot weather and quenching her thirst w/tea and/or Koolaid and little to no po intake. She adds that she has a freezer stocked w/food and knows that she needs to eat r/t she is unhappy w/her recent wt loss. Discussed Healthy po intake w/the My Plate diagram for 50% of the plate w/fruits & vegetables and 25% of the plate w/ protein and 25% of the plate w/starch, whole grains and beans/legumes. Pt receptive and says she will do better. Discussed w/pt making her daily menu selections while she is here. Pt receptive to receiving Ensure w/meals. Objective - Diagnosis Bipolar DO, Manic Episode - Objective % IBW: 80 Body Weight Used for Calculations: Actual (44.9 kg) Energy Needs - Lower Range (kCal/kg): 33 Energy Needs - Upper Range (kCal/kg): 38 Lower Limit kCal/kg (kCals): 1,481 Upper Limit kCal/kg (kCals): 1,706 Lower Limit Protein Factor (Grams per Kg): 1.2 Upper Limit Protein Factor (Grams per Kg): 1.5 Lower Protein Needs (Protein): 54 Upper Protein Needs (Protein): 67 Dietitian Reviewed in Medical Record: Current diet, Curent medications, Intake & Output, Labs, Medical history Diet Order: Regular Oral Diet Intake Amount: Good 75-90% Objective Comments: PMH includes: alcohol use disorder, bipolar disorder Meds include Haldol, Folic Acid, Thiamine, Atarax, Ativan A1C pending Assessment Assessment: Pt is at nutritional risk r/t recent wt loss and poor nutrition. Encouraged pt to follow a healthy diet using the My Plate approach. Encouraged pt to make daily menu selections here. Send Ensure Enlive TID(= 350 kcal and 20g protein per serving). Noted pt is receiving Folic Acid and Thiamine. Rec pt also start Theragran M QD. Labs reviewed. Dietitian will follow. Please note pt's HT reassessed during this visit and correct HT is 163.8 cm. Recommendations: 1. Encouraged pt to follow a healthy diet using the My Plate approach 2. Encouraged pt to make daily menu selections here 3. Send Ensure Enlive TID 4. Rec pt also start Theragran M QD 5. Dietitian will follow 6. Please note pt's HT reassessed during this visit and correct HT is 164 cm Dietitian to Monitor: Lab values, Supplement acceptance, Intake & Output, PO Intake, Medical course
[2018-02-12 15:28] LABS: Hemoglobin A1c 5.9 % (4.3-6.0)
[2018-02-12 16:49] VITALS: PULSE 55; TEMP 98.3
--- NOTE | 2018-02-12 17:47 | ECG ---
Date Performed: 02/11/2018 Time Performed: 14:16:58 PTAGE: 57 years EKG: Sinus rhythm POSSIBLE LEFT ATRIAL ENLARGEMENT INCOMPLETE RIGHT BUNDLE BRANCH BLOCK BORDERLINE ECG NO PREVIOUS TRACING DOCTOR: Jose Elias Sauceda Interpretating Date/Time 02/12/2018 17:44:38
[2018-02-12] MEDS ORDERED: risperiDONE 1 MG ODT PO SCH (21:00)
[2018-02-13 05:49] VITALS: BP 104/58; RESP 18; O2SAT 96
[2018-02-13] MEDS: OXcarbazepine 150 MG Tablet PO SCH (08:41)
[2018-02-13] MEDS: Folic Acid 1 MG Tablet PO SCH (08:41)
--- NOTE | 2018-02-13 10:47 | P.TTN ---
- Patient Problems Problems: 1. Discharge planning 2. Medication compliance 3. Knowledge deficit 4. Lack of coping skills - Progress Toward Goals Provider Present: Dr. Lilia Toscano (Patient meets criteria for discharge.) Psychiatric Counselors Present: Luis Carlos Parikh Jr., [facility] (Counselor will meet with the pt to discuss discharge plan) Group Spec/RT/OT/[place] Present: TRAVIS Batista (Attends group. ) - Documentation Teaching Recipient: Patient
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
== END 2018-02-13 13:30 | disposition home or self-care (01) | DRG 885 ==
LOC: NEPB 19:04 → NEDA 02-11 09:05 → H270 02-11 09:45 → H260 02-12 10:33
PROVIDERS: ADMIT Psychiatry & Neurology Psychiatry; ATTEND Psychiatry & Neurology Psychiatry